=== PATIENT | male | born 1990 | race Two or more races ===

== ENCOUNTER 2025-01-24 16:36 | Emergency (ER) | payer OTHER ==
[~2025-01-24] VITALS: Ht 175.3 cm; Wt 95.3 kg
[2025-01-24 16:59] VITALS: BP 155/83; O2SAT 99
[2025-01-24] MEDS ORDERED: KETOROLAC TROMETHAMINE 30 MG VIAL IM STA (17:25)
[2025-01-24] MEDS ORDERED: KETOROLAC TROMETHAMINE 30 MG VIAL ONE (17:45)
== END 2025-01-24 18:32 | disposition home or self-care (01) ==
LOC: ER 16:39
DX: S00.83XA Contusion of other part of head, initial encounter (principal); X83.8XXA Intentional self-harm by other specified means, initial encounter; Y93.89 Activity, other specified; Y92.89 Other specified places as the place of occurrence of the external cause; Y99.9 Unspecified external cause status; G25.81 Restless legs syndrome